=== PATIENT | female | born 1940 | race Caucasian/White ===

== ENCOUNTER → 2023-06-08 11:16 | Outpatient (REF) | payer MEDICARE, OTHER, SELFPAY ==
[2023-06-08 11:41] LABS: Urine Albumin Negative (Neg - Trace); Urine Bilirubin Negative (Negative); Urine Character Clear (Clear); Urine Color Yellow; Urine Glucose 3+ (Negative); Urine Ketone Negative (Negative); Urine Leukocyte 2+ (Negative); Urine Nitrite Negative (Negative); Urine Occult Blood Negative (Negative); Urine Urobilinogen Negative (Neg - 1+)
[2023-06-08 11:47] LABS: Urine Mucus Few; Urine Squamous Cell 0-2 /LPF (Few)
[2023-06-08 11:48] LABS: Urine Bacteria Many (Negative); Urine Red Blood Cell 0-2 /HPF (0-2)
[2023-06-08 11:49] LABS: % Basophils 1.1 % (0-2); % Eosinophils 1.5 % (0-6); % Immature Granulocytes 0.1 % (0-0.5); % Lymphocytes 25.9 % (20.5-51.1); % Neutrophils 64.4 % (42.2-75.2); Absolute Basophils 0.1 10^3/uL (0-0.2); Absolute Eosinophils 0.1 10^3/uL (0-0.7); Absolute Lymphocytes 1.9 10^3/uL (1.2-3.4); Absolute Monocytes 0.5 10^3/uL (0.1-0.6); Absolute Neutrophils 4.6 10^3/uL (1.4-6.5); Hematocrit 41.4 % (37.0-47.0); Hemoglobin 13.8 g/dL (12.0-16.0); Mean Corp Hgb Conc. 33.3 g/dL (33.0-37.0); Mean Corpuscular Hgb 30.6 pg (27.0-31.0); Mean Corpuscular Volume 91.8 fL (81.0-99.0); Mean Platelet Volume 11.3 fL (7.4-10.4); Nucleated Red Blood Cells % 0 %; Platelet Count 236 10^3/uL (130-400); Red Blood Cell Count 4.51 10^6/uL (4.20-5.40); Red Cell Dist. Width 13.3 % (11.5-14.5); White Blood Cell Count 7.2 10^3/uL (4.8-10.8)
[2023-06-08 12:12] LABS: ALT (SGPT) 16 U/L (0-35); AST (SGOT) 26 U/L (14-36); Albumin 4.6 g/dl (3.5-5.0); Alkaline Phosphatase 87 U/L (38-126); Blood Urea Nitrogen 21 mg/dl (7-17); Calcium 9.4 mg/dl (8.4-10.2); Carbon Dioxide 32 mmol/L (22-30); Chloride 101 mmol/L (98-107); Glucose 101 mg/dl (70-99); HDL Cholesterol 75 mg/dl; LDL Cholesterol, Calculated 131 mg/dl; Potassium 3.5 mmol/L (3.5-5.1); Sodium 140 mmol/L (135-145); Total Bilirubin 0.9 mg/dl (0.2-1.3); Total Cholesterol 235 mg/dl (50-199); Total Protein 7.4 g/dl (6.3-8.2); Triglyceride 145 mg/dl (10-149); Very Low Density Lipoprotein 29 mg/dl (0-30); eGFR > 60.00
[2023-06-08 12:39] LABS: TSH Reflex To Free T4 1.14 uIU/ml (0.47-4.68)
== END ==
LOC: REG 11:16
PROVIDERS: ATTENDING PHYSICIAN Family Medicine; REFERRING PHYSICIAN Internal Medicine Cardiovascular Disease
DX: I50.30 Unspecified diastolic (congestive) heart failure (principal); E78.00 Pure hypercholesterolemia, unspecified; K21.9 Gastro-esophageal reflux disease without esophagitis; E04.1 Nontoxic single thyroid nodule; Z13.89 Encounter for screening for other disorder
CPT/HCPCS: 36415; 80053; 80061; 81003; 81015; 84443; 85025

== ENCOUNTER → 2023-07-16 11:01 | Outpatient (REF) | payer MEDICARE, OTHER, SELFPAY | LOC: WDC 11:01 | PROVIDERS: ATTENDING PHYSICIAN Family Medicine | DX: Z12.31 Encounter for screening mammogram for malignant neoplasm of breast (principal) | CPT/HCPCS: 77063; 77067 ==

== ENCOUNTER → 2023-07-24 17:16 | Outpatient (REF) | payer MEDICARE, OTHER, SELFPAY | LOC: MRI 17:16 | PROVIDERS: ATTENDING PHYSICIAN Pain Medicine Interventional Pain Medicine; FAMILY PHYSICIAN Family Medicine | DX: M70.61 Trochanteric bursitis, right hip (principal) | CPT/HCPCS: 73721 ==

== ENCOUNTER 2023-09-03 16:48 | Emergency (ER) | payer MEDICARE, OTHER, SELFPAY ==
[2023-09-03 16:59] VITALS: BP 110/67; BMI 27.5
--- NOTE | 2023-09-03 18:28 | ED.GENMED ---
History of Present Illness
General
Chief Complaint: Fall
Source: patient
Time Seen by Provider: 09/03/23 18:27
Travel History
Have you had any contact with someone who has COVID-19?: No
Do you have any symptoms of coronavirus? Fever > 100 degrees, chills, cough, shortness of breath, sore throat, loss of taste or smell, muscle aches, or headache?: No
History of Present Illness
History of Present Illness:
83-year-old female with past medical history of atrial fibrillation, previous CVA, CHF, hyperlipidemia presenting to the emergency department from outpatient physical therapy after she had noted to them that she fell this past Thursday and struck her
face on the ground noting some ecchymosis to the right inferior orbit and abrasion to the left lower leg. Due to the head injury and anticoagulants it was recommended that patient come to the ER for further evaluation. Patient states she has mild
disc over her face but otherwise no other concerns. Denies any loss consciousness, vomiting, visual changes or any other concerns.
Past History
Past History
ED Past Medical History: Arrthythmia (Paroxysmal atrial fibrillation), CHF, CVA and Other (TIA 2011)
ED Past Surgical History: Orthopedic; Negative Cardiac
Social History
Tobacco: Non-smoker
Alcohol: Occasional
Drug: None
Personal:
Living: with family
Employment: Retired
Family History
Family History: Other (mother with coronary disease in her 80s)
Review of Systems
Review of Systems
All Other Systems: ROS reviewed and negative except as documented in HPI and ROS
Phy Exam
Physical Exam
Physical Exam:
GENERAL: Alert , in no apparent distress
EYE: conjunctiva clear
Head: Small right inferior orbital ecchymosis appears slightly older
NECK: Supple,
ENT: mmm.
LUNGS: no acute respiratory distress
NEUROLOGICAL: Alert and oriented
SKIN: Warm and dry, 2 small skin abrasions to the left anterior tibia. No active bleeding
MUSCULOSKELETAL: well perfused.
PSYCH: Normal and appropriate interaction.
Scores
Heart Failure Risk
Heart Failure Risk Score: Not Applicable
Heart Score for Chest Pain Patients
STEMI patient?: Not applicable
Withdrawal Assessment of Alcohol
Withdrawal Assessment Completed?: Not applicable
Course
Orders/Labs/Results
Orders:
Orders
09/03/23 17:02
CT Head W/o Iv Contrast Urgent
Comment:
Reason For Exam: felliquis.
Vital Signs
Initial and Last Documented VS:
Initial Vital Signs
Temp Pulse Resp BP Pulse Ox
98.2 F 69 16 110/67 98
09/03/23 16:59 09/03/23 16:59 09/03/23 16:59 09/03/23 16:59 09/03/23 16:59
Last Documented Vital Signs
Temp Pulse Resp BP Pulse Ox
98.2 F 69 16 110/67 98
09/03/23 16:59 09/03/23 16:59 09/03/23 16:59 09/03/23 16:59 09/03/23 16:59
MDM/Problems Addressed
Differential Diagnosis Includes:
Contusion, intracranial bleeding, fracture
MDM/Problems Addressed:
83-year-old female presenting to the emergency department for evaluation at the request of physical therapy team after a fall 2 days ago resulting in head injury. Head CT was ordered and ultimately negative for any acute intracranial pathology.
Wound care was provided to the left lower leg. Patient is otherwise stable for discharge home and outpatient management.
*Radiology
Radiology exam reviewed: preliminary read by ED provider
*Pulse Oximetry
Patient hypoxic: no
*Critical Care Note
Total Time (30-74mins, 75-104mins- exclusive of procedures): Not Applicable
ED Attending Note
-
Portions of this chart may have been created with voice recognition software.� Occasional wrong word or��sound alike� substitutions may have occurred due to the inherent limitations of voice recognition software.
Discharge Plan
Departure
Patient Disposition: Home (Routine Discharge)
Date of Disposition: 09/03/23
Time of Disposition: 18:28
Patient with high blood pressure during this ER visit?: No
Discharge Problem:
Accidental fall
Instructions: Preventing falls in adults
Prescriptions:
No Action
Eliquis 5 MG tablet
5 mg PO BID Qty: 60 3RF
loratadine 10 MG tablet
10 mg PO PRN PRN (Reason: allergies)
Glucosamine Chondroitin 1 EACH capsule
1 ea PO DAILY
pantoprazole 40 MG tablet,delayed release (DR/EC)
40 mg PO DAILY Qty: 14 0RF
metoprolol succinate 50 MG tablet extended release 24 hr
50 mg PO BID Qty: 1 0RF
furosemide 20 MG tablet
20 mg PO BID
Farxiga 10 mg Tablet
10 mg PO DAILY
Referrals:
Komal Vallejo MD [Family Provider] -
Interventions
Interventions:
*Risk Screen - Suicide Last Done: 09/03/23 16:59
*General Assessment Last Done: 09/03/23 18:05
*Neglect/Abuse Screening Last Done: 09/03/23 16:59
ED- Fall Risk Assessment Last Done: 09/03/23 16:59
*ED COVID-19 Vaccine History Last Done: 09/03/23 18:05
*Nursing Disposition Last Done: 09/03/23 18:56
ED-Musculoskeletal Assessment Last Done: 09/03/23 18:05
ED- Neurological Assessment Last Done: 09/03/23 18:05
ED-Skin Assessment Last Done: 09/03/23 18:05
Discharge Date and Time
Discharge Date/Time: 09/03/23 18:56
Print Language: CAMEROONIAN
== END 2023-09-03 18:56 | disposition home or self-care (01) ==
LOC: EMR 16:48
PROVIDERS: EMERGENCY PHYSICIAN Emergency Medicine; FAMILY PHYSICIAN Family Medicine
DX: S00.83XA Contusion of other part of head, initial encounter (principal); S80.812A Abrasion, left lower leg, initial encounter; W19.XXXA Unspecified fall, initial encounter; I48.91 Unspecified atrial fibrillation; I50.9 Heart failure, unspecified; E78.00 Pure hypercholesterolemia, unspecified; Z82.49 Family history of ischemic heart disease and other diseases of the circulatory system; Z86.73 Personal history of transient ischemic attack (TIA), and cerebral infarction without residual deficits
CPT/HCPCS: 99284; 70450

== ENCOUNTER → 2023-09-21 17:14 | Outpatient (REF) | payer MEDICARE, OTHER, SELFPAY | LOC: REG 17:14 | PROVIDERS: ATTENDING PHYSICIAN Family Medicine; REFERRING PHYSICIAN Internal Medicine Cardiovascular Disease | DX: A09 Infectious gastroenteritis and colitis, unspecified (principal) | CPT/HCPCS: 87328; 87329 ==

== ENCOUNTER → 2023-12-30 08:34 | Outpatient (REF) | payer MEDICARE, OTHER, SELFPAY | LOC: RCS 08:34 | PROVIDERS: ATTENDING PHYSICIAN Nurse Practitioner Gerontology; FAMILY PHYSICIAN Family Medicine; REFERRING PHYSICIAN Internal Medicine Cardiovascular Disease | DX: I50.30 Unspecified diastolic (congestive) heart failure (principal) | CPT/HCPCS: 93306 ==

== ENCOUNTER → 2024-03-09 10:06 | Outpatient (REF) | payer MEDICARE, OTHER, SELFPAY ==
[2024-03-09 11:17] LABS: ALT (SGPT) 16 U/L (0-35); AST (SGOT) 24 U/L (14-36); Albumin 4.7 g/dl (3.5-5.0); Alkaline Phosphatase 72 U/L (38-126); Blood Urea Nitrogen 22 mg/dl (7-17); Calcium 9.1 mg/dl (8.4-10.2); Carbon Dioxide 31 mmol/L (22-30); Chloride 100 mmol/L (98-107); Glucose 98 mg/dl (70-99); HDL Cholesterol 69 mg/dl; LDL Cholesterol, Calculated 70 mg/dl; Potassium 3.7 mmol/L (3.5-5.1); Sodium 144 mmol/L (135-145); Total Bilirubin 0.5 mg/dl (0.2-1.3); Total Cholesterol 168 mg/dl (50-199); Total Protein 7.1 g/dl (6.3-8.2); Triglyceride 148 mg/dl (10-149); Very Low Density Lipoprotein 29 mg/dl (0-30); eGFR > 60.00
[2024-03-09 14:27] LABS: Folate > 20.0 ng/ml (2.76-20); Vitamin B12 273 pg/ml (239-931)
[2024-03-10 22:54] LABS: ANA, IgG Reflex to HEp-2 None Detected (None Detected)
== END ==
LOC: REG 10:06
PROVIDERS: ATTENDING PHYSICIAN Internal Medicine Cardiovascular Disease; FAMILY PHYSICIAN Family Medicine
DX: G31.84 Mild cognitive impairment of uncertain or unknown etiology (principal); E78.00 Pure hypercholesterolemia, unspecified; E78.5 Hyperlipidemia, unspecified; D52.0 Dietary folate deficiency anemia
CPT/HCPCS: 36415; 80053; 80061; 82607; 82746; 86038

== ENCOUNTER 2024-04-15 18:35 | Emergency (ER) | payer MEDICARE, OTHER, SELFPAY ==
[2024-04-15 18:37] VITALS: BP 115/69
--- NOTE | 2024-04-15 18:45 | ED.GENMED ---
ED Provider Triage
<Tay Cannon Jr., PA-C - Last Filed: 04/15/24 18:47>
-
Patient seen by provider in Triage?: Seen in Triage
Attestation: A medical screening examination has been initiated by a qualified medical provider. Based on the assessment performed at this time, it has been determined that an emergent medical condition may exist and the patient has been informed
that further medical evaluation and possible additional diagnostic testing may be needed.
HPI: 84-year-old female presenting to the emergency department today with concerns of cough and upper respiratory symptoms over the past few days. Initially went to an urgent care and tried to get a hold of her primary care doctor but both were not
available. She is concerned that in the past that she has had similar cough and end up being pneumonia. Here vital signs are normal patient no distress lungs are clear.
GENERAL: Alert , in no apparent distress
EYE: No visual abnormalities.
NECK: Trachea midline
ENT: No visible abnormalities.
LUNGS: No acute respiratory distress
NEUROLOGICAL: Alert and oriented
SKIN: Skin intact. No visible changes.
MUSCULOSKELETAL: Moving extremities normally
PSYCH: Normal and appropriate interaction.
This is a medical evaluation conducted in person to initiate diagnostic evaluation and provide initial therapeutics. Please see further documentation by the treating clinician.
History of Present Illness
<Tay Cannon Jr., PA-C - Last Filed: 04/15/24 18:47>
General
Chief Complaint: Cold/Flu/URI Symptoms
Time Seen by Provider: 04/15/24 19:39
<Niraj Celestin PA-C - Last Filed: 04/15/24 21:32>
General
Source: patient
History of Present Illness
History of Present Illness:
84-year-old female with past medical history of atrial fibrillation, CHF, previous CVA presenting the emergency department for evaluation of 4 to 5 days of cough and flulike symptoms. is also here for the same. Patient also notes
associated mild sore throat and generalized fatigue but no fevers. Denies any recent antibiotic use. No other concerns at this time.
Past History
<Tay Cannon Jr., PA-C - Last Filed: 04/15/24 18:47>
Past History
ED Past Medical History: Arrthythmia (Paroxysmal atrial fibrillation), CHF, CVA and Other (TIA 2011)
ED Past Surgical History: Orthopedic; Negative Cardiac
Social History
Tobacco: Non-smoker
Alcohol: Occasional
Drug: None
Personal:
Living: with family
Employment: Retired
Family History
Family History: Other (mother with coronary disease in her 80s)
Review of Systems
<Niraj Celestin PA-C - Last Filed: 04/15/24 21:32>
Review of Systems
All Other Systems: ROS reviewed and negative except as documented in HPI and ROS
Phy Exam
<Niraj Celestin PA-C - Last Filed: 04/15/24 21:32>
Physical Exam
Physical Exam:
GENERAL: Alert , in no apparent distress, persistent cough during the exam
EYE: conjunctiva clear
NECK: Supple
ENT: o/p clr, mmm.
CARDIAC: Regular rate and rhythm
LUNGS: Clear breath sounds bilaterally, no acute respiratory distress, no wheezes/rales/rhonchi
NEUROLOGICAL: Alert and oriented
SKIN: Warm and dry, skin intact.
MUSCULOSKELETAL: well perfused.
PSYCH: Normal and appropriate interaction.
Scores
<MARIA GUADALUPE Vines Last Filed: 04/15/24 21:32>
Heart Failure Risk
Heart Failure Risk Score: Not Applicable
Heart Score for Chest Pain Patients
STEMI patient?: Not applicable
Withdrawal Assessment of Alcohol
Withdrawal Assessment Completed?: Not applicable
Course
<Tay Cannon Jr., PA-C - Last Filed: 04/15/24 18:47>
Orders/Labs/Results
Orders:
Orders
04/15/24 18:43
Chest [CR Chest - 2 Views ] Urgent
Comment:
Reason For Exam: cough x 5 dYS
04/15/24 18:46
COVID-19 Antigen Urgent
Source: Nasal Swab
Influenza A+B Rapid Molecular Urgent
BRODY Source: Nasal Swab
Specimen Description:
04/15/24 20:47
Azithromycin [Zithromax] 500 mg PO NOW STA
Cefdinir [Omnicef] 300 mg PO NOW STA
Vital Signs
Initial and Last Documented VS:
Initial Vital Signs
Temp Pulse Resp BP Pulse Ox
97.6 F 77 18 115/69 96
04/15/24 18:37 04/15/24 18:37 04/15/24 18:37 04/15/24 18:37 04/15/24 18:37
Last Documented Vital Signs
Temp Pulse Resp BP Pulse Ox
97.6 F 77 18 120/70 96
04/15/24 18:37 04/15/24 21:10 04/15/24 21:10 04/15/24 21:10 04/15/24 21:10
<Niraj Celestin PA-C - Last Filed: 04/15/24 21:32>
Orders/Labs/Results
Orders:
Orders
04/15/24 18:43
Chest [CR Chest - 2 Views ] Urgent
Comment:
Reason For Exam: cough x 5 dYS
04/15/24 18:46
COVID-19 Antigen Urgent
Source: Nasal Swab
Influenza A+B Rapid Molecular Urgent
BRODY Source: Nasal Swab
Specimen Description:
04/15/24 20:47
Azithromycin [Zithromax] 500 mg PO NOW STA
Cefdinir [Omnicef] 300 mg PO NOW STA
Vital Signs
Initial and Last Documented VS:
Initial Vital Signs
Temp Pulse Resp BP Pulse Ox
97.6 F 77 18 115/69 96
04/15/24 18:37 04/15/24 18:37 04/15/24 18:37 04/15/24 18:37 04/15/24 18:37
Last Documented Vital Signs
Temp Pulse Resp BP Pulse Ox
97.6 F 77 18 120/70 96
04/15/24 18:37 04/15/24 21:10 04/15/24 21:10 04/15/24 21:10 04/15/24 21:10
<Niraj Celestin PA-C - Last Filed: 04/15/24 21:32>
MDM/Problems Addressed
Differential Diagnosis Includes:
COVID, flu, other viral etiology, pneumonia
MDM/Problems Addressed:
84-year-old female presenting emergency department for evaluation of cold and flulike symptoms ongoing for the last few days, also here being evaluated for the same. COVID and flu testing were negative. Chest x-ray does show a questionable
right-sided infiltrate on x-ray. Will cover for community-acquired pneumonia. Patient is otherwise stable for discharge home and aware of return precautions.
<Niraj Celestin PA-C - Last Filed: 04/15/24 21:32>
*Radiology
Radiology exam reviewed: preliminary read by ED provider (Questionable right-sided infiltrate)
*Pulse Oximetry
Patient hypoxic: no
*Critical Care Note
Total Time (30-74mins, 75-104mins- exclusive of procedures): Not Applicable
ED Attending Note
<Tay Cannon Jr., PA-C - Last Filed: 04/15/24 18:47>
-
Portions of this chart may have been created with voice recognition software.� Occasional wrong word or��sound alike� substitutions may have occurred due to the inherent limitations of voice recognition software.
Discharge Plan
Departure
Patient Disposition: Home (Routine Discharge)
Date of Disposition: 04/15/24
Time of Disposition: 20:39
Patient with high blood pressure during this ER visit?: No
Discharge Problem:
Pneumonia
Instructions: Pneumonia in adults - Discharge instructions
Prescriptions:
New
azithromycin [Zithromax] 250 mg tablet
250 mg PO DAILY 4 Days Qty: 4 0RF
cefdinir 300 mg capsule
300 mg PO BID 5 Days Qty: 10 0RF
benzonatate 200 mg capsule
200 mg PO BID PRN (Reason: Cough) Qty: 10 0RF
No Action
Eliquis 5 MG tablet
5 mg PO BID Qty: 60 3RF
loratadine 10 MG tablet
10 mg PO PRN PRN (Reason: allergies)
Glucosamine Chondroitin 1 EACH capsule
1 ea PO DAILY
pantoprazole 40 MG tablet,delayed release (DR/EC)
40 mg PO DAILY Qty: 14 0RF
metoprolol succinate 50 MG tablet extended release 24 hr
50 mg PO BID Qty: 1 0RF
furosemide 20 MG tablet
20 mg PO BID
Farxiga 10 mg Tablet
10 mg PO DAILY
Referrals:
Komal Vallejo MD [Family Provider] -
Interventions
Interventions:
*Risk Screen - Suicide Last Done: 04/15/24 21:10
*General Assessment Last Done: 04/15/24 19:47
*Neglect/Abuse Screening Last Done: 04/15/24 19:47
*ED COVID-19 Vaccine History Last Done: 04/15/24 19:47
*Nursing Disposition Last Done: 04/15/24 21:10
ED- Pulmonary Assessment Last Done: 04/15/24 19:47
Discharge Date and Time
Discharge Date/Time: 04/15/24 21:11
Print Language: WOLOF
[2024-04-15 19:10] LABS: COVID-19 Antigen Negative (Negative)
[2024-04-15] MEDS: OMNICEF 300 MG PO (20:51)
[2024-04-15] MEDS: ZITHROMAX 500 MG PO (20:51)
[2024-04-15 21:10] VITALS: BP 120/70
== END 2024-04-15 21:11 | disposition home or self-care (01) ==
LOC: EMR 18:35
PROVIDERS: Physician Assistant; EMERGENCY PHYSICIAN Emergency Medicine; FAMILY PHYSICIAN Family Medicine
DX: J18.9 Pneumonia, unspecified organism (principal); Z11.52 Encounter for screening for COVID-19; I48.0 Paroxysmal atrial fibrillation; I50.9 Heart failure, unspecified
CPT/HCPCS: 99284; 71046; 87502; 87811

== ENCOUNTER → 2024-07-19 13:09 | Outpatient (REF) | payer MEDICARE, OTHER, SELFPAY | LOC: WDC 13:09 | PROVIDERS: ATTENDING PHYSICIAN Family Medicine | DX: Z12.31 Encounter for screening mammogram for malignant neoplasm of breast (principal) | CPT/HCPCS: 77063; 77067 ==

== ENCOUNTER → 2024-08-24 09:24 | Outpatient (REF) | payer MEDICARE, OTHER, SELFPAY ==
[2024-08-24 10:13] LABS: Urine Albumin Negative (Neg - Trace); Urine Bilirubin Negative (Negative); Urine Character Clear (Clear); Urine Color Yellow; Urine Glucose 3+ (Negative); Urine Ketone Negative (Negative); Urine Leukocyte 2+ (Negative); Urine Nitrite Positive (Negative); Urine Occult Blood 2+ (Negative); Urine Specific Gravity 1.015 (<1.030); Urine Urobilinogen Negative (Neg - 1+)
[2024-08-24 10:35] LABS: Urine Squamous Cell 0-2 /LPF (Few)
[2024-08-24 10:36] LABS: Urine Bacteria Many (Negative)
[2024-08-24 10:38] LABS: % Eosinophils 1.9 % (0-6); % Immature Granulocytes 0.4 % (0-0.5); % Monocytes 6.9 % (1.7-9.3); % Neutrophils 60.8 % (42.2-75.2); Absolute Basophils 0.1 10^3/uL (0-0.2); Absolute Eosinophils 0.1 10^3/uL (0-0.7); Absolute Lymphocytes 1.5 10^3/uL (1.2-3.4); Absolute Monocytes 0.4 10^3/uL (0.1-0.6); Absolute Neutrophils 3.2 10^3/uL (1.4-6.5); Hematocrit 40.7 % (37.0-47.0); Hemoglobin 12.9 g/dL (12.0-16.0); Mean Corp Hgb Conc. 31.7 g/dL (33.0-37.0); Mean Corpuscular Hgb 30.1 pg (27.0-31.0); Mean Corpuscular Volume 94.9 fL (81.0-99.0); Mean Platelet Volume 11.8 fL (7.4-10.4); Nucleated Red Blood Cells % 0 %; Platelet Count 206 10^3/uL (130-400); Red Blood Cell Count 4.29 10^6/uL (4.20-5.40); Red Cell Dist. Width 13.2 % (11.5-14.5); White Blood Cell Count 5.2 10^3/uL (4.8-10.8)
[2024-08-24 11:07] LABS: ALT (SGPT) 18 U/L (0-35); AST (SGOT) 24 U/L (14-36); Albumin 4.1 g/dl (3.5-5.0); Alkaline Phosphatase 71 U/L (38-126); Blood Urea Nitrogen 19 mg/dl (7-17); Carbon Dioxide 33 mmol/L (22-30); Chloride 104 mmol/L (98-107); Glucose 99 mg/dl (70-99); HDL Cholesterol 60 mg/dl; LDL Cholesterol, Calculated 72 mg/dl; Potassium 4.1 mmol/L (3.5-5.1); Sodium 141 mmol/L (135-145); Total Bilirubin 0.7 mg/dl (0.2-1.3); Total Cholesterol 161 mg/dl (50-199); Total Protein 6.5 g/dl (6.3-8.2); Triglyceride 148 mg/dl (10-149); Very Low Density Lipoprotein 29 mg/dl (0-30); eGFR > 60.00
[2024-08-24 11:34] LABS: TSH Reflex To Free T4 0.85 uIU/ml (0.47-4.68)
[2024-08-24 12:46] LABS: Folate 19.9 ng/ml (2.76-20); Vitamin B12 362 pg/ml (239-931)
== END ==
LOC: REG 09:24
PROVIDERS: ATTENDING PHYSICIAN Family Medicine; REFERRING PHYSICIAN Internal Medicine Cardiovascular Disease
DX: Z00.00 Encounter for general adult medical examination without abnormal findings (principal); E78.5 Hyperlipidemia, unspecified; I48.0 Paroxysmal atrial fibrillation; E04.1 Nontoxic single thyroid nodule; E53.8 Deficiency of other specified B group vitamins; Z13.89 Encounter for screening for other disorder
CPT/HCPCS: 36415; 80053; 80061; 81003; 81015; 82607; 82746; 83921; 84443; 85025

== ENCOUNTER → 2024-09-21 14:37 | Outpatient (REF) | payer MEDICARE, OTHER, SELFPAY | LOC: PAVMRI 14:37 | PROVIDERS: ATTENDING PHYSICIAN Physician Assistant; FAMILY PHYSICIAN Family Medicine | DX: M54.14 Radiculopathy, thoracic region (principal) | CPT/HCPCS: 72146 ==

== ENCOUNTER → 2024-09-27 11:53 | Outpatient (REF) | payer MEDICARE, OTHER, SELFPAY ==
[2024-09-27 16:14] LABS: Urine Albumin Negative (Neg - Trace); Urine Bilirubin Negative (Negative); Urine Character Clear (Clear); Urine Color Yellow; Urine Glucose 4+ (Negative); Urine Ketone Negative (Negative); Urine Leukocyte Negative (Negative); Urine Nitrite Positive (Negative); Urine Occult Blood Negative (Negative); Urine Specific Gravity 1.015 (<1.030); Urine Urobilinogen Negative (Neg - 1+); Urine pH 6.5 (5.0-9.0)
[2024-09-27 16:44] LABS: Urine Bacteria Many (Negative); Urine Red Blood Cell 0-2 /HPF (0-2)
== END ==
LOC: CLAB 11:53
PROVIDERS: ATTENDING PHYSICIAN Family Medicine
DX: R82.90 Unspecified abnormal findings in urine (principal)
CPT/HCPCS: 81003; 81015; 87077; 87086; 87186

== ENCOUNTER → 2025-03-29 09:47 | Outpatient (REF) | payer MEDICARE, OTHER, SELFPAY ==
[2025-03-29 11:05] LABS: Hematocrit 40.0 % (37.0-47.0); Hemoglobin 13.0 g/dL (12.0-16.0); Mean Corp Hgb Conc. 32.5 g/dL (33.0-37.0); Mean Corpuscular Volume 90.3 fL (81.0-99.0); Nucleated Red Blood Cells % 0 %; Platelet Count 195 10^3/uL (130-400); Red Cell Dist. Width 13.9 % (11.5-14.5)
[2025-03-29 12:14] LABS: ALT (SGPT) 16 U/L (0-35); AST (SGOT) 24 U/L (14-36); Albumin 4.4 g/dl (3.5-5.0); Blood Urea Nitrogen 20 mg/dl (7-17); Calcium 9.0 mg/dl (8.4-10.2); Carbon Dioxide 31 mmol/L (22-30); Chloride 102 mmol/L (98-107); Glucose 93 mg/dl (70-99); HDL Cholesterol 67 mg/dl; LDL Cholesterol, Calculated 96 mg/dl; Potassium 3.6 mmol/L (3.5-5.1); Sodium 140 mmol/L (135-145); Very Low Density Lipoprotein 22 mg/dl (0-30); eGFR > 60.00
== END ==
LOC: REG 09:47
PROVIDERS: ATTENDING PHYSICIAN Internal Medicine Cardiovascular Disease; FAMILY PHYSICIAN Family Medicine
DX: I48.0 Paroxysmal atrial fibrillation (principal); I50.30 Unspecified diastolic (congestive) heart failure; E78.00 Pure hypercholesterolemia, unspecified
CPT/HCPCS: 36415; 80061; 80069; 84450; 84460; 85025